=== PATIENT | female | born 1970 | race Hispanic/Latino ===

== ENCOUNTER 2018-01-03 00:06 | Emergency (ER) | payer OTHER ==
[2018-01-03] MEDS ORDERED: CYCLOBENZAPRINE HCL 10 MG TABLET ONE (00:29)
[2018-01-03] MEDS ORDERED: ONDANSETRON ODT 4 MG TAB ONE (00:29)
[2018-01-03] MEDS ORDERED: MORPHINE SULFATE 4 MG/1ML SYG ONE (00:29)
[2018-01-03] MEDS ORDERED: KETOROLAC TROMETHAMINE 30MG/ML ONE (00:30)
== END 2018-01-03 01:34 | disposition home or self-care (01) ==
LOC: EDH 00:06
DX: M62.830 Muscle spasm of back (principal); Z90.49 Acquired absence of other specified parts of digestive tract; Z98.890 Other specified postprocedural states
CPT/HCPCS: 72072; 96372 ×2; 99284; J1885; J2270